=== PATIENT | male | born 1995 | race African-American/Black ===

== ENCOUNTER 2016-11-22 23:53 | Emergency (ER) ==
[2016-11-23 00:09] VITALS: BP 133/79
--- NOTE | 2016-11-23 01:11 | PROVIDER DOCUMENTATION ---
HPI-Rash/Wound/ReCheck - General Chief Complaint: Facial Pain Stated Complaint: FACE PAIN Time Seen by Provider: 11/23/16 01:03 Source: patient Allergies/Adverse Reactions: Allergies Allergy/AdvReac Type Severity Reaction Status Date / Time No Known Allergies Allergy Verified 11/23/16 00:09 Home Medications: Home Medication List Medication Instructions Recorded Confirmed Last Taken Type Prednisone 20 mg PO BID #10 tablet 11/23/16 Unknown Rx Sulfamethoxazole/Trimethoprim 2 each PO BID #40 tablet 11/23/16 Unknown Rx [Bactrim Ds Tablet] - History of Present Illness-Dermatology Nature of Presenting Problem: PT HAS A SMALL ABSCESS IN THE MIDDLE OF HIS RIGHT CHEEK X 1MONTH. Location: reports: face Quality: reports: painful Severity: reports: mild Onset/Duration: reports: gradual Timing: reports: still present Context/Associated Symptoms: reports: abscess, tender area. denies: laceration , abrasion, change in skin texture, fever, nasal congestion, rash, sore throat, swelling/mass/lumps Identifiable cause?: Yes Exposure: reports: unknown cause Locality of Occurance: Home Similar Symptoms Previously?: No Recently seen or treated by another doctor?: No Review of Systems - Adult - REVIEW OF SYSTEMS - ADULT Constitutional: denies: chills, fever, night sweats Eyes: denies: discharge, double vision, redness Ears, Nose, Mouth & Throat: denies: ear pain, mouth/dental pain, throat pain, throat swelling Cardiovascular: denies: chest pain, irregular heart rate, palpitations Respiratory: denies: cough, shortness of breath, wheezing Gastrointestinal: denies: abdominal pain, diarrhea, nausea, vomiting Genitourinary: denies: dysuria, flank pain, hematuria Musculoskeletal: denies: back pain, muscle aches, neck pain Integumentary: reports: other (ABSCESS MIDDLE OF RIGHT CHEEK.). denies: hives, itching, rash Neurological: denies: dizziness/vertigo, headache/migraines, syncope All Other Systems: Reviewed and Negative Past History - Adult - PAST MEDICAL HISTORY-ADULT Review of Records: reports: Old Records Reviewed, Nursing Assessment Review, Medications Reviewed Major Childhood Illnesses: reports: denies history Psychiatric: reports: anxiety, depression Other Conditions: reports: denies history - PRIOR SURGERIES/PROCEDURES Surgical/Procedure History: reports: orthopedic (extremity) - IMMUNIZATION STATUS Childhood Immunizations: See Nurse Assessment Flu Vaccine: See Nurse Assessment - FAMILY HISTORY Family History: reviewed, not pertinent - SOCIAL HISTORY Smoking: quit less than 1 year Provider spent 3-5 mins advising pt. on dangers of tobacco.: Discussed manners to quit use, and f/u contacts for add'l counseling. Substance Use: none/never Living Situation: family Physical Exam-General - CONSTITUTIONAL General Appearance: appears well, alert, no apparent distress - EYES Eyes: PERRL/EOMI, pink conjunctivae, fundi clear, no AV nicking - HEAD, EARS, NOSE, MOUTH & THROAT HENMT: normal ENT inspection - NECK Neck: normal inspection - RESPIRATORY Respiratory: chest non-tender, lungs clear, normal breath sounds, no pleuratic chest pain, no respiratory distress, no accessory muscle use - CARDIOVASCULAR Cardiovascular: normal peripheral pulses, regular rate, rhythm, no edema, no gallop, no JVD, no murmur - GASTROINTESTINAL (ABDOMEN) Abdominal Exam: normal bowel sounds, non tender, soft, no organomegaly, no pulsatile mass - MUSCULOSKELETAL Extremity: normal range of motion, normal inspection - SKIN Integumentary: normal color, normal turgor, warm/dry, other (ABSCESS RIGHT CHEEK.) - PSYCHIATRIC Psych/Mental Status: normal mood/affect, normal thought content, normal thought process, oriented x 3 Departure - Departure Time of Disposition Order: 01:15 DIAGNOSIS: Cellulitis of face Disposition: HOME 01 Certified Medical Emergency: Emergent Condition: Good Additional Instructions: ED Follow Up Instructions: You have been treated by a care provider in the Emergency Department. These instructions are being provided to you so you can have an understanding of how to care for yourself upon discharge. Upon discharge from the Emergency Department, you are responsible for making arrangements for follow-up care by a physician of your choice. Take all prescribed medications as directed. Return to the Emergency Department immediately for any new or worsening symptoms. You may call the Physician Referral phone number at [phone] to obtain a list of Physicians who are taking new patients. Attestation - Scribe Verification/Attestation Scribe:: Carlyle Ballesteros Acting as Scribe for:: Diomedes Covarrubias Scribe documention review:: This chart was documented by a scribe and accurately reflects the service the provider performed and the decisions made by the provider.
== END 2016-11-23 01:19 | disposition home or self-care (01) ==
LOC: P.ED 23:53
DX: L03.211 Cellulitis of face (principal); R51 Headache; Z87.891 Personal history of nicotine dependence
CPT/HCPCS: 99282